=== PATIENT | male | born 1980 | race Hispanic/Latino ===

== ENCOUNTER 2022-11-16 15:43 | Emergency (ER) | payer BC ==
[2022-11-16 16:12] LABS: #Eosinphils 0.2 thou/uL (0.0-0.7); #Lymphocytes 2.1 thou/uL (1.20-3.40); #Monocytes 0.4 thou/uL (0.11-0.59); #Neutrophils 3.8 thou/uL (1.40-6.50); %Basophils 0.6 % (0.0-1.0); %Lymphocytes 32.1 % (21.0-51.0); %Monocytes 6.2 % (0.0-10.0); %Neutrophils 58.1 % (42.0-75.0); Hemoglobin 16.3 g/dL (14.0-18.0); Mean Corpuscular HGB CONC 34.1 g/dL (32.0-36.0); Mean Corpuscular Hemoglobin 30.3 pg (27.0-31.0); Mean Corpuscular Volume 88.9 fl (78.0-98.0); Mean Platelet Volume 8.7 fL (7.4-10.4); Platelet Count 209 10x3/uL (130-400); RBC Distribution Width 11.5 % (11.5-14.5); Red Blood Cell (RBC) Count 5.38 mill/uL (4.70-6.10); White Blood Cell (WBC) Count 6.6 10x3/uL (4.8-10.8)
[2022-11-16 16:34] LABS: ALT (SGPT) 16 U/L (8-55); AST (SGOT) 15 U/L (5-34); Albumin 4.4 g/dL (3.5-5.0); Alkaline Phosphatase 85 U/L (40-110); Anion Gap 13 mmol/L (10-20); BUN (Urea Nitrogen) 14 mg/dL (8.9-20.6); Calc. Creatinine Clearance 0 mL/min (70-130); Calcium 9.6 mg/dL (7.8-10.44); Carbon Dioxide 26 mmol/L (22-29); Chloride 103 mmol/L (98-107); Digoxin Less than 0.15 ng/mL (0.8-2.0); Estimated GFR 111; Globulin 3.3 g/dL (2.4-3.5); Glucose 128 mg/dL (70-105); Lipase 40 U/L (8-78); Potassium 4.1 mmol/L (3.5-5.1); Protein, Total 7.7 g/dL (6.0-8.3); Sodium 138 mmol/L (136-145)
== END 2022-11-16 17:40 | disposition home or self-care (01) ==
LOC: ERS 15:43
DX: R07.89 Other chest pain (principal); F41.9 Anxiety disorder, unspecified
CPT/HCPCS: 36415; 71045; 80053; 80162; 83690; 84484; 85025; 93005

== ENCOUNTER 2025-07-27 13:08 | Emergency (ER) | payer BC ==
[~2025-07-27 13:08] MED LIST: Iopamidol-370 76% 500 ML MDV (1 ML CHARGE) ONE
[2025-07-27] MEDS ORDERED: Famotidine 20 MG TAB ONE (13:59)
[2025-07-27] MEDS ORDERED: Acetaminophen 500 MG TAB ONE (13:59)
[2025-07-27] MEDS ORDERED: Ondansetron PF 4 MG/2 ML Vial ONE (14:00)
[2025-07-27] MEDS ORDERED: Famotidine/PF 20 mg/2ml Vial ONE (14:02)
[2025-07-27 14:42] LABS: #Eosinophils Less than 0.03 10x3/uL (0.0-0.7); #Monocytes 0.46 10x3/uL (0.11-0.59); #Neutrophils 10.69 10x3/uL (1.40-6.50); %Monocytes 3.6 % (0.0-10.0); Mean Corpuscular Volume 85.0 fL (78.0-98.0)
[2025-07-27 14:55] LABS: ALT (SGPT) 24 U/L (Less than 45); AST (SGOT) 23 U/L (11-34); Albumin 4.6 g/dL (3.1-4.5); Alkaline Phosphatase 88 U/L (40-110); Anion Gap 13 mmol/L (10-20); BUN (Urea Nitrogen) 22 mg/dL (8.9-20.6); Bilirubin, Total 0.8 mg/dL (0.3-1.2); Calc. Creatinine Clearance 0 mL/min (70-130); Calcium 9.7 mg/dL (7.8-10.44); Carbon Dioxide 26 mmol/L (22-29); Chloride 103 mmol/L (98-107); Globulin 3.6 g/dL (2.4-3.5); Glucose 201 mg/dL (70-105); Lipase 33 U/L (8-78); Potassium 4.0 mmol/L (3.5-5.1); Sodium 138 mmol/L (136-145)
[2025-07-27 15:01] LABS: #Basophils Less than 0.03 10x3/uL (0.0-0.2); %Basophils 0.2 % (0.0-1.0); %Eosinophils 0.1 % (0.0-10.0); %Lymphocytes 11.6 % (21.0-51.0); %Neutrophils 83.9 % (42.0-75.0); Hematocrit 50.3 % (42.0-52.0); Hemoglobin 16.8 g/dL (14.0-18.0); Mean Corpuscular Hemoglobin 28.4 pg (27.0-31.0); Platelet Count 229 10x3/uL (130-400); Red Blood Cell (RBC) Count 5.92 mill/uL (4.70-6.10); White Blood Cell (WBC) Count 12.72 10x3/uL (4.8-10.8)
== END 2025-07-27 18:10 | disposition home or self-care (01) ==
LOC: ERS 13:08
DX: R42 Dizziness and giddiness (principal); R10.13 Epigastric pain; R73.9 Hyperglycemia, unspecified
CPT/HCPCS: 70496; 70498; 80053; 83690; 84484; 85025; 93005; 96361; 96374; 96375; J1308; J2405; Q9967